=== PATIENT | male | born 1955 | race Caucasian/White ===

== ENCOUNTER → 2021-01-13 15:19 | Outpatient (CLI) | payer BC, SELFPAY ==
[2021-01-13 17:31] LABS: Absolute Lymphocyte Count 2.38 X10^3/uL (0.83-4.51); Absolute Neutrophil Count 3.1 X10^3/uL (2.0-7.7); Basophil# 0.05 X10^3/uL; Basophil% 0.8 % (0-1); Eosinophil# 0.18 X10^3/uL; Eosinophils% 2.9 % (0-5); Hematocrit 48.3 % (40-54); Hemoglobin 16.5 g/dL (13.0-16.5); Lymphocyte # 2.38 X10^3/ul (4.0); Lymphocyte % 38.1 % (19-41); Mean Corp Hgb Conc 34.2 g/dL (32-36); Mean Corpuscular Hgb 27.9 pg (27.0-32.0); Mean Corpuscular Volume 81.6 fL (80-94); Mean Platelet Vol. 10.7 fl (6.2-12.0); Monocyte# 0.51 X10^3/uL; Monocyte% 8.2 % (0-10); NRBC Flagged by Analyzer 0 % (0-5); Neutrophil # 3.12 X10^3/uL (2.7-7.7); Neutrophil % 49.8 % (47-70); Platelet Count 206 K/mm3 (150-450); RBC Distribution Width CV 14.4 % (11.6-14.6); RBC Distribution Width SD 42.4 fl (35.1-43.9); Red Blood Count 5.92 M/mm3 (4.6-6.2); White Blood Count 6.3 K/mm3 (4.4-11.0)
[2021-01-13 17:51] LABS: AST(SGOT) 50 U/L (15-37); Alanine Aminotransfer ALT/SGPT 70 U/L (16-61); Albumin, Serum 3.9 g/dL (3.2-5.0); Alkaline Phosphatase 59 U/L (45-117); Anion Gap 8 (5-15); BUN 16 mg/dL (7-18); BUN/Creat Ratio 14.7 RATIO (10-20); Calcium,Total 9.1 mg/dL (8.5-10.1); Chloride 106 mmol/L (98-107); Cholesterol 164 mg/dL (200); Creatinine, Serum 1.09 mg/dL (0.70-1.30); EST Glomerular Filtration Rate 72 mL/min (>60); Est Glom Filt Rate - Afr Amer 87 mL/min (>60); Glucose 117 mg/dL (74-106); High Density Lipoprotein 39 mg/dL; Potassium 3.1 mmol/L (3.5-5.1); Protein, Total 7.9 g/dL (6.4-8.2); Sodium Level 141 mmol/L (136-145); Triglycerides 190 mg/dL; Very Low Density Lipoprotein 38 mg/dL (5-40)
[2021-01-13 17:56] LABS: Hemoglobin A1c 7.1 % (3.8-5.6)
== END ==
PROVIDERS: PCP Family Medicine; Referring Provider Family Medicine; Visit Provider Family Medicine
DX: E11.21 Type 2 diabetes mellitus with diabetic nephropathy (principal); I10 Essential (primary) hypertension; E78.5 Hyperlipidemia, unspecified; Z53.20 Procedure and treatment not carried out because of patient's decision for unspecified reasons
CPT/HCPCS: 36415; 80053; 80061; 83036; 85025

== ENCOUNTER 2024-10-29 11:28 | Day surgery (SDC) | payer MEDICARE, BC, SELFPAY ==
[2024-10-29] VITALS (7 sets, daily range): BP systolic 119–204; BP diastolic 51–88; PULSE 50–56; RESP 16–18; TEMP 36.6–36.9; O2SAT 93–99; BMI 34.9
--- NOTE | 2024-10-29 11:47 | HP.PCM_ITS ---
HPI - General General Date of Admission: 10/29/24 Date of Service: 10/29/24 Chief Complaint: screening colon HPI Narrative ITA DONOVAN, is a 69 M who presents to the office today for establishment with [facility] for the purpose of making an appointment for a screening colonoscopy. He states that he is a couple of years overdue. His last colonoscopies have all been benign with polypectomies. He denies difficulty chewing and swallowing, nausea, vomiting, abdominal bloating and pain, constipation, diarrhea, hematochezia, and melena. He reports daily complete BMs without straining. He reports heartburn is controlled by daily omeprazole 40mg. He denies knowing of food allergies or intolerances. [facility] Medical History Alcohol use Fatty liver Back pain Dietary restriction Chewing tobacco dependence Shortness of breath on exertion Hx of pilonidal cyst GERD (gastroesophageal reflux disease) FRANK (generalized anxiety disorder) HLD (hyperlipidemia) Type 2 diabetes mellitus HTN (hypertension) Home Medications ?Medication ?Instructions ?Recorded ?Last Taken ?Type amlodipine 10 mg tablet 10 mg PO QHS 09/10/24 Unknown History aspirin 81 mg tablet,delayed 81 mg PO QHS 09/10/24 10/26/24 History release atenolol 25 mg tablet 25 mg PO QHS 09/10/24 Unknown History atorvastatin 10 mg tablet 10 mg PO QHS 09/10/24 Unknown History citalopram 20 mg tablet (Celexa) 20 mg PO QHS 09/10/24 Unknown History empagliflozin 10 mg tablet 10 mg PO QHS 09/10/24 Unknown History (Jardiance) fenofibrate nanocrystallized 145 145 mg PO QHS 09/10/24 Unknown History mg tablet hydrochlorothiazide 12.5 mg tablet 12.5 mg PO QHS 09/10/24 Unknown History metformin 500 mg tablet 1,000 mg PO QHS 09/10/24 Unknown History omeprazole 40 mg capsule,delayed 40 mg PO QHS 09/10/24 Unknown History release Allergy/AdvReac Type Severity Reaction Status Date / Time No Known Allergies Allergy Verified 10/28/24 15:47 Family History Mother Uterine cancer Surgical History Hx of colonoscopy Social History Smoking Status: Current every day smoker tobacco type: smokeless tobacco Smokeless tobacco user: chewing tobacco alcohol intake: current alcohol intake frequency: a few times a month Alcohol type: beer substance use type: does not use ROS Constitutional Constitutional: Denies fatigue, fever(s), poor appetite, weight gain or weight loss Gastrointestinal Gastrointestinal: Denies belching, bloating, change in bowel habits, change in stool character, chewing difficulty, coffee ground emesis, constipation, cramping, diarrhea, dyspepsia, dysphagia, early satiety, excessive flatus, fecal incontinence, heartburn, hematemesis, hematochezia, hemorrhoids, loose stools, melena, nausea, odynophagia, rectal bleeding, tenesmus, vomiting or weight changes Physical Exam Const alert, oriented x3, no apparent distress and healthy appearing General Appearance: cooperative GI normal to inspection, nondistended, normoactive bowel sounds, soft to palpation, non-tender and non-distended Percussion: normal to percussion Rectal Exam: deferred Assessment & Plan Assessment/Plan (1) Screening for colon cancer: PLAN: Assessment and Plan (1) Screening for colon cancer: Status: Acute Plan ITA DONOVAN, is a 69 M who presents to the office today for establishment with [facility] for the purpose of making an appointment for a screening colonoscopy. * schedule colonoscopy * continue omeprazole 40mg PO daily * office will call with scope results
--- NOTE | 2024-10-29 12:01 | PRE.ANES_ITS ---
ASA Classification* ASA Classification ASA Classification: 3 Assessment & Plan Anesthesia* Anesthesia Assessment Anesthesia Assessment: Discussed sedation and/or anesthesia options, risks, benefits, and alternatives with patient/parents/legal guardian/POA. Questions invited. The patient/parents/legal guardian/POA seems to understand and agrees to proceed with anesthesia plan. Reviewed the physical assessment, medical history, allergy history and patient home medications list prior to surgery/procedure/anesthetic and documented any changes. Performed airway and anesthesia risk assessments. Anesthesia Type Anesthesia Type: General (elevated bp systolic 205. patient informed to f/up primary care who is tx htn) Anesthesia Focused Assessment* Airway Assessment Mouth opens: >3 cm Mallampati Score: II Focused Labs Anesthesia Preop lab: CBC WBC 6.3 K/mm3 (4.4-11.0) 01/13/21 15:29 RBC 5.92 M/mm3 (4.6-6.2) 01/13/21 15:29 Hgb 16.5 g/dL (13.0-16.5) 01/13/21 15:29 Hct 48.3 % (40-54) 01/13/21 15:29 Plt Count 206 K/mm3 (150-450) 01/13/21 15:29 CHEMISTRY Potassium 3.1 mmol/L (3.5-5.1) L 01/13/21 15:29 Sodium 141 mmol/L (136-145) 01/13/21 15:29 BUN 16 mg/dL (7-18) 01/13/21 15:29 Creatinine 1.09 mg/dL (0.70-1.30) 01/13/21 15:29 Glucose 117 mg/dL (74-106) H 01/13/21 15:29 COAG Pre-Assessment Diagnosis/Proposed Procedure Planned Operative Procedure(s): CSCOPE Anesthesia History Anesthesia History - director of valuation: Anesthesia History - director of valuation Hx Hospitalization No 10/28/24 15:49 Any Problems With Anesthesia No 10/28/24 15:49 Cholinesterase deficiency No 10/28/24 15:49 You/Your Family Experience No 10/28/24 15:49 fever (hyperthermia) with Relationship Recent Exposure to Contagious Disease Does patient have nerve No 10/28/24 15:49 stimulator Patient instructed to have device shut off --Does patient have Pacemaker or ICD? When Was Last Pacemaker Check QUESTION #4 FULL TEXT: You/Your Family Experience fever (hyperthermia) with Anesthesia Last Oral Intake Last Oral intake: Last Oral Intake NPO since Meds taken in AM with sips of water? Meds patient instructed to take am of surgery PONV PONV - director of valuation: PONV - director of valuation Female Yes 10/28/24 15:49 HX of Motion Sickness No 10/28/24 15:49 HX of N/V After Surgery No 10/28/24 15:49 Non-Smoker No 10/28/24 15:49 Duration of Surgery greater No 10/28/24 15:49 than 60 minutes Number of Risk Factors 1 10/28/24 15:49 PONV Score Low Risk 10/28/24 15:49 Respiratory Assessment Respiratory Assessment - director of valuation: Respiratory Tract Infection Hx - director of valuation Hx Respiratory Tract Infection No 10/28/24 15:49 STOP Sleep Apnea STOP Sleep Apnea - director of valuation: STOP Sleep Apnea - director of valuation Hx Hypertension Yes: CONTROLLED WITH MEDS 10/28/24 15:49 Hx Sleep Apnea Yes 10/28/24 15:49 CPAP Yes 10/28/24 15:49 BIPAP No 10/28/24 15:49 Do you snore loudly (louder than talking or can be heard Do you often feel tired/ fatigued/ sleepy during daytime? Has anyone observed you stop breathing during sleep? STOP Results Positive 10/28/24 15:49 QUESTION #5 FULL TEXT : Do you snore loudly (louder than talking or can be heard through closed doors)? Tobacco Use History Tobacco Use History - director of valuation: Tobacco Use History - director of valuation Tobacco Use Smoking Status Current every day smoker 10/28/24 15:49 Hx Tobacco Use Yes 10/28/24 15:49 Years Smoking Packs Smoked per Day Smoking Cessation Date was within the last 15 years Hx Smoking Cessation Date Hx Smoking Cessation Counseling Hematologic Medial History Hematologic Hx - director of valuation: Hematologic Medical Hx - surveyor helper Hx of Blood Transfusion No 10/28/24 15:49 Hx of Transfusion in last 3 No 10/28/24 15:49 Months Date of Last Transfusion (if within last 3 months) Ever experience any problems No 10/28/24 15:49 with transfusion(s)? Specify any problems Hx of Preganancy in last 3 N/A 10/28/24 15:49 Months Nurse Filling Out Transfusion DSCHRIBER 10/28/24 15:49 & Questions: Date: 10/28/24 10/28/24 15:49 Time: 15:51 10/28/24 15:49 Patient unable to answer at this time (ie. confused, unrespo /Reproduction History /Reproductive History - director of valuation: /Reproductive Hx- director of valuation Hx Now No 10/28/24 15:49 Gestational Age (in weeks): EDC: Hx Hx Para Hx Section SAB No 10/28/24 15:49 PFSH Medical History Alcohol use Fatty liver Back pain Dietary restriction Chewing tobacco dependence Shortness of breath on exertion Hx of pilonidal cyst GERD (gastroesophageal reflux disease) FRANK (generalized anxiety disorder) HLD (hyperlipidemia) Type 2 diabetes mellitus HTN (hypertension) Home Medications ?Medication ?Instructions ?Recorded ?Last Taken ?Type amlodipine 10 mg tablet 10 mg PO QHS 09/10/24 Unknown History aspirin 81 mg tablet,delayed 81 mg PO QHS 09/10/24 10/26/24 History release atenolol 25 mg tablet 25 mg PO QHS 09/10/24 Unknown History atorvastatin 10 mg tablet 10 mg PO QHS 09/10/24 Unknown History citalopram 20 mg tablet (Celexa) 20 mg PO QHS 09/10/24 Unknown History empagliflozin 10 mg tablet 10 mg PO QHS 09/10/24 Unknown History (Jardiance) fenofibrate nanocrystallized 145 145 mg PO QHS 09/10/24 Unknown History mg tablet hydrochlorothiazide 12.5 mg tablet 12.5 mg PO QHS 09/10/24 Unknown History metformin 500 mg tablet 1,000 mg PO QHS 09/10/24 Unknown History omeprazole 40 mg capsule,delayed 40 mg PO QHS 09/10/24 Unknown History release Allergy/AdvReac Type Severity Reaction Status Date / Time No Known Allergies Allergy Verified 10/28/24 15:47 Family History Mother Uterine cancer Surgical History Hx of colonoscopy Social History Smoking Status: Current every day smoker tobacco type: smokeless tobacco Smokeless tobacco user: chewing tobacco alcohol intake: current alcohol intake frequency: a few times a month Alcohol type: beer substance use type: does not use Review of Systems (Anesthesia) ROS Narrative System reviewed and no additional complaints, except as documented.
--- NOTE | 2024-10-29 12:30 | COLBX_PTH ---
PATIENT: ITA DONOVAN LOC: EN U#:[id number] AGE/SX: 69/M ROOM: RE10/29/[address]: Dr. David Mayorga DO : 1955 BED: DIS: 10/29/2024 SPEC #: [id number] RECD: 10/29/24 13:15 STATUS: TONY REBarbara #: [id number] DOROTHY: 10/29/24 12:[address]: David Mayorga DEPT: SURGICAL PATHOLOGY RECD BY: Alex Cabrera ENTERED: 10/29/24 13:34 SP TYPE: COLON BX OT DR: Dr. Rosa Isela Garcia MD Tissues: A - COLON BIOPSY B - Sigmoid colon biopsy C - Rectum, NOS Procedures: Surgery Specimen Level IV HEADER OPERATION: Colonoscopy, polypectomy PRE-OP DIAGNOSIS: Screening for colon cancer TISSUE SUBMITTED: A- Hepatic flexure polyp biopsy, B- Sigmoid polyp, C- Rectal polyp MICROSCOPIC DIAGNOSIS A. Hepatic flexure polyp, biopsy: Fragments of tubular adenoma. B. Sigmoid polyp, polypectomy: Inflammatory polyp. C. Rectal polyp, polypectomy: Fragments of tubular adenoma. EMILY. 10/30/2024 MICROSCOPIC DESCRIPTION Slides are reviewed. GROSS DESCRIPTION A. Received in fixative is one container labeled with the patient's name and designated Hepatic flexure polyp biopsy. The specimen consists of two irregular fragments of light benton soft tissue that in aggregate measure 0.5 x 0.2 x 0.1 cm. The specimen is totally submitted in one cassette. B. Received in fixative is one container labeled with the patient's name and designated Sigmoid polyp. The specimen consists of a pink-red polyp measuring 1.1 x 0.8 x 0.6 cm. The presumed base is inked. The polyp is bisected and submitted entirely in one cassette. C. Received in fixative is one container labeled with the patient's name and designated Rectal polyp. The specimen consists of a pink-red polyp measuring 1.0 x 1.0 x 0.8 cm. The presumed base is inked. The polyp is serially sectioned. Also present in the container are multiple fragments of benton soft tissue measuring in aggregate 0.5 x 0.5 x 0.1cm. The entire specimen is submitted in one cassette. 10/29/2024 TC:1 CPT:31253z2
--- NOTE | 2024-10-29 12:37 | OP.COLON_ITS ---
Patient Name: Diego Naik Procedure Date: 10/29/2024 11:51 AM Date of : 1955 Age: 69 Procedure: Colonoscopy Indications: Screening for colorectal malignant neoplasm Providers: David Mayorga DO Medicines: Monitored Anesthesia Care Patient Profile: This is a 69 year old male. Refer to note in patient chart for documentation of history and physical. Last Colonoscopy: more than 10 years ago. Complications: No immediate complications. Procedure: Pre-Anesthesia Assessment: - Prior to the procedure, a History and Physical was performed, and patient medications and allergies were reviewed. The patient is competent. The risks and benefits of the procedure and the sedation options and risks were discussed with the patient. All questions were answered and informed consent was obtained. Patient identification and proposed procedure were verified by the physician in the pre-procedure area. Mental Status Examination: alert and oriented. Airway Examination: normal oropharyngeal airway and neck mobility. Respiratory Examination: clear to auscultation. CV Examination: normal. Prophylactic Antibiotics: The patient does not require prophylactic antibiotics. Prior Anticoagulants: The patient has taken no anticoagulant or antiplatelet agents except for NSAID medication. ASA Grade Assessment: II - A patient with mild systemic disease. After reviewing the risks and benefits, the patient was deemed in satisfactory condition to undergo the procedure. The anesthesia plan was to use monitored anesthesia care (MAC). Immediately prior to administration of medications, the patient was re-assessed for adequacy to receive sedatives. The heart rate, respiratory rate, oxygen saturations, blood pressure, adequacy of pulmonary ventilation, and response to care were monitored throughout the procedure. The physical status of the patient was re-assessed after the procedure. After I obtained informed consent, the scope was passed under direct vision. Throughout the procedure, the patient's blood pressure, pulse, and oxygen saturations were monitored continuously. The Colonoscope was introduced through the anus and advanced to the cecum, identified by appendiceal orifice and ileocecal valve. The colonoscopy was performed without difficulty. The patient tolerated the procedure well. The quality of the bowel preparation was adequate. The ileocecal valve, appendiceal orifice, and rectum were photographed. Scope In: 12:17:01 PM Scope Withdrawal Time 0 hours 12 minutes 5 seconds Scope Out: 12:30:38 PM Total Procedure Duration Time 0 hours 13 minutes 37 seconds Findings: The perianal and digital rectal examinations were normal. Two sessile polyps were found in the rectum and sigmoid colon. The polyps were 1 to 2 mm in size. These polyps were removed with a hot snare. Resection and retrieval were complete. Verification of patient identification for the specimen was done. Estimated blood loss was minimal. A 4 mm polyp was found in the hepatic flexure. The polyp was sessile. The polyp was removed with a jumbo cold forceps. Resection and retrieval were complete. Verification of patient identification for the specimen was done. Estimated blood loss was minimal. Impression: - Two 1 to 2 mm polyps in the rectum and in the sigmoid colon, removed with a hot snare. Resected and retrieved. - One 4 mm polyp at the hepatic flexure, removed with a jumbo cold forceps. Resected and retrieved. Recommendation: - Repeat colonoscopy in 3 years for surveillance. - Patient medication history reviewed. Patient is appropriately not taking any medications. Procedure Code(s): --- Professional --- 59126, Colonoscopy, flexible; with removal of tumor(s), polyp(s), or other lesion(s) by snare technique 68862, 59, Colonoscopy, flexible; with biopsy, single or multiple CPT copyright 2021 [employer]. All rights reserved. The codes documented in this report are preliminary and upon hat checker review may be revised to meet current compliance requirements. David Mayorga DO 10/29/2024 12:36:22 PM This report has been signed electronically. Number of Addenda: 0 Note Initiated On: 10/29/2024 11:51 AM
--- NOTE | 2024-10-29 12:37 | OP.CCLET_ITS ---
10/29/2024 Rosa Isela Garcia Re : Colonoscopy procedure for Diego Naik Dear Jose This procedure was performed on Tuesday, October 29, 2024. My impressions and recommendations are as follows: Impressions : - Two 1 to 2 mm polyps in the rectum and in the sigmoid colon, removed with a hot snare. Resected and retrieved. - One 4 mm polyp at the hepatic flexure, removed with a jumbo cold forceps. Resected and retrieved. Recommendations : - Repeat colonoscopy in 3 years for surveillance. - Patient medication history reviewed. Patient is appropriately not taking any medications. My findings are described in the full procedure note, which is enclosed. If I can be of further assistance, please feel free to contact me at . Sincerely, David Mayorga, 10/29/2024 12:36:22 PM This report has been signed electronically.
--- NOTE | 2024-10-29 12:47 | PCM.POST.ANE ---
Anesthesia: Postop Eval I Current Vital Signs Temperature: 97.8 F Pulse Rate: 54 Blood Pressure: 135/51 Respiratory Rate: 16 Pulse Ox: 96 Oxygen Delivery Method: Room Air Assessment Airway patent: Yes Spontaneous unlabored respirations: Yes Mental status: Asleep nausea: No Vomiting: No Anesthesia Complication: No Fluid Hydration Crystalloid volume administer (ml): 60 Total IV fluid infused: 60 Progress Note Anesthesia document: Postop Eval 1 completed: Yes
--- NOTE | 2024-10-29 13:23 | PCM.POSTANE2 ---
Anesthesia Postop Eval I Sum Postop Eval Completion status Anesthesia document: Postop Eval 1 completed: Yes Anesthesia Postop Eval I Summary Anesthesia Postop Eval I Summary: Anesthesia Postop Eval I: Assessment Summary Airway patent Yes 10/29/24 12:48 [email or web address] Spontaneous unlabored Yes 10/29/24 12:48 [email or web address] respirations Mental status Asleep 10/29/24 12:48 [email or web address] nausea No 10/29/24 12:48 [email or web address] Vomiting No 10/29/24 12:48 [email or web address] Anesthesia Postop Eval I: Fluid Summary Crystalloid volume administer 60 10/29/24 12:48 [email or web address] (ml) Colloids volume administered ( ml) Blood Product volume administered (ml) Total IV fluid infused 60 10/29/24 12:48 [email or web address] Anesthesia Postop Eval I: Summary Notes Anesthesia Complication No 10/29/24 12:48 [email or web address] Anesthesia Complication Comment: Post-operative progress note Anesthesia: Postop Eval II Evaluation Mental status: Awake Pain Level: 0 nausea: No Vomiting: No
== END 2024-10-29 13:19 | disposition home or self-care (01) ==
LOC: EN 11:31 → AC 11:32
PROVIDERS: PCP Family Medicine; Referring Provider Family Medicine; Visit Provider Internal Medicine Gastroenterology
PROC: 0DJD8ZZ Inspection of Lower Intestinal Tract, Via Natural or Artificial Opening Endoscopic (ICD-10-PCS; CPT 45378; principal; 2024-10-29 12:25)
DX: Z12.11 Encounter for screening for malignant neoplasm of colon (principal); K51.40 Inflammatory polyps of colon without complications; E11.9 Type 2 diabetes mellitus without complications; D12.3 Benign neoplasm of transverse colon; D12.8 Benign neoplasm of rectum; K21.9 Gastro-esophageal reflux disease without esophagitis; I10 Essential (primary) hypertension; E78.5 Hyperlipidemia, unspecified; F17.220 Nicotine dependence, chewing tobacco, uncomplicated; Z90.49 Acquired absence of other specified parts of digestive tract; Z79.82 Long term (current) use of aspirin; Z79.84 Long term (current) use of oral hypoglycemic drugs; Z79.899 Other long term (current) drug therapy
CPT/HCPCS: 45385; 45380; 88305; A4216; J2405